=== PATIENT | female | born 1965 | race Caucasian/White ===

== ENCOUNTER → 2020-04-07 | Outpatient (CLI) | payer BC ==
[2020-04-07] MEDS: IOHEXOL 300 MG/ML 100ML VIAL. IV ONE (14:03)
[2020-04-07] MEDS: IOHEXOL 240 MG/ML 50ML VIAL. PO ONE (14:04)
--- NOTE | 2020-04-07 14:38 | RAD ---
EXAM: CT Abdomen and Pelvis with IV contrast INDICATION: Reason: LEFT UPPER QUADRANT PAIN / Spl. Instructions: INJ 75ML OMNI 300 30 ML OMNI 240 P O / History: TECHNIQUE: Multi-detector row CT images were acquired from the lung bases through the abdomen and pel vis with the use of IV contrast. Sagittal and coronal images were acquired from the transaxial data. All CT scans performed at this facility utilize dose optimization techniques as appropriate to the ex am, including the following: Automated exposure control and adjustment of the mA and/or KV according to patient size (this includes techniques or standardized protocols for targeted exams where dose is indication/reason for exam). IV CONTRAST: 75 mL Omnipaque 300 ORAL CONTRAST: 30 mL Omnipaque 240 COMPARISON: None FINDINGS: LOWER CHEST: Unremarkable LIVER: Unremarkable BILIARY SYSTEM: Gallbladder is unremarkable. Bile ducts are not dilated. PANCREAS: Unremarkable SPLEEN: Unremarkable ADRENALS: Unremarkable KIDNEYS & URETERS: Unremarkable BLADDER: Unremarkable REPRODUCTIVE ORGANS: Post surgical changes in the left adnexa, compatible with previous left salping o-oophorectomy. GASTROINTESTINAL: The stomach, small bowel, and colon are unremarkable. The appendix is normal. MESENTERY/PERITONEUM/RETROPERITONEUM: Unremarkable VASCULAR: Unremarkable LYMPH NODES: No adenopathy OSSEOUS & SOFT TISSUES: Lumbar spine shows grade 1 anterolisthesis of L4 on L5 and mild levoscoliosi s, apex at L4-5. Facet hypertrophic changes in the lower lumbar spine notably at L5-S1, left greater than right are present and result in at least moderate left foraminal stenosis at L5-S1. A 2.4 cm scl erotic focus in the left acetabulum and a similar, 8 mm sclerotic focus in the right acetabulum are c ompatible with benign bone islands. IMPRESSION: 1. Essentially unremarkable abdomen and pelvis CT with oral and IV contrast. 2. No specific findings to explain left upper quadrant abdominal pain. 3. Likely incidental degenerative changes in the lumbar spine and previous left salpingo-oophorectomy .. Electronically signed by: Rubin Howell MD (04/07/2020 2:35 PM) [id number]
== END ==
LOC: CT 12:52
PROVIDERS: ATTEND Internal Medicine Gastroenterology
DX: R10.12 Left upper quadrant pain (principal); M43.16 Spondylolisthesis, lumbar region; M41.86 Other forms of scoliosis, lumbar region; M47.817 Spondylosis without myelopathy or radiculopathy, lumbosacral region; M48.07 Spinal stenosis, lumbosacral region; Z90.722 Acquired absence of ovaries, bilateral
CPT/HCPCS: 74177; Q9966; Q9967

== ENCOUNTER 2021-01-09 17:58 | Emergency (ER) | payer BC ==
[~2021-01-09] VITALS: Ht 198.1 cm; Wt 68.0 kg
[2021-01-09] MEDS ORDERED: FLUORESCEIN OPHTH TEST STRIP. OS ONE (18:15)
[2021-01-09] MEDS ORDERED: TETRACAINE 0.5% OPHTH SOLUTION 4ML BOTTLE. OS ONE (18:15)
--- NOTE | 2021-01-09 18:28 | PHYS DOC ---
Past Medical History Additional Past Medical Histor: vertigo Past Surgical History: General Adult EDM: Chief Complaint: HEAD INJURY/TRAUMA HPI: HPI: Patient is a 55-year-old female presenting by EMS for head injury this evening. She reports that she was hit with a soccer ball and the impact was on the left side of her face. She reports feeling as though her vision was going black and having to lean on the people next to her, but denies passing out. She remembers the whole event. She denies use of blood thinner. She reports some tenderness on the left side of her neck and left cheek that is a 4 of 10. She also notes some eye irritation on the left. She feels as though her contact is lost somewhere in her eye, but denies any changes in her vision. Review of Systems: Review of Systems: Constitutional: Denies fever or chills Eyes: Reports eye irritation Respiratory: Denies cough or shortness of breath Cardiovascular: Denies chest pain or palpitations GI: Denies abdominal pain, nausea, or vomiting : Denies dysuria or hematuria Musculoskeletal: Denies back pain or joint pain Integument: Denies rash or skin lesions Neurologic: Denies headache, focal weakness or sensory changes Complete systems were reviewed and found to be within normal limits, except as documented in this note. Heart Score: C/O Chest Pain: No Current Medications: Current Medications Medications (Trade) Dose Ordered Sig/Duane Start Time Stop Time Status Last Admin Dose Admin Fluorescein Sodium (Ful-Conchita) 1 strip 1X ONCE 01/09/21 18:15 01/09/21 18:16 UNV Tetracaine HCl (Tetracaine) 2 drop 1X ONCE 01/09/21 18:15 01/09/21 18:16 Allergies: Allergies: Allergies Uncoded Allergies Type Severity Reaction Last Updated Verified PENICILLIN Allergy Unknown 04/07/20 Physical Exam: PE: Constitutional: Well developed, well nourished, no acute distress, non-toxic appearance HENT: Normocephalic, erythema over left maxilla, no facial crepitus or instability palpated Eyes: PERRL, EOMI, injected conjunctiva on the left, no visible contact in the eye on the left, but visible on the right Neck: No midline tenderness to palpation, paraspinal tenderness on the left, supple, C-collar in place Lungs & Thorax: No respiratory distress, equal chest rise and fall Abdomen: Soft, no tenderness Skin: Warm, dry, no erythema, no rash Back: No tenderness, no CVA tenderness Extremities: No tenderness, no edema, able to move all extremities Neurologic: Alert and oriented X 3, normal motor function, normal sensory function, no focal deficits noted Psychologic: Affect normal, judgment normal Current Patient Data: Vital Signs: Vital Signs Date Time Temp Pulse Resp B/P (MAP) Pulse Ox O2 Delivery O2 Flow Rate FiO2 01/09/21 18:00 98.4 72 16 199/106 (137) 98 Room Air 98.4 Course & Med Decision Making: Course & Med Decision Making Pertinent Labs and Imaging studies reviewed. (See chart for details) Patient is a 55-year-old female presenting by EMS for facial/head trauma. She was hit with a soccer ball and the impact was on the left side of her face. She has no cervical midline tenderness on exam. No obvious crepitus or facial instability palpated on exam. Denies use of blood thinners. Mechanism of injury not severe enough to warrant imaging at this time. No midline tenderness to cervical spine, C-collar was removed, ROM intact. Due to eye irritation, Davis lamp exam performed. No evidence of pillo sign or corneal abrasion visualized, subconjunctival contusion noted. Erythromycin ointment applied to eye for protection. We will advise to continue using the ointment for a few days due to the irritation from the eye contusion. Will also give prescription for norflex due to cervical paraspinal musculature tenderness on the left. Patient's blood pressure was elevated here in the emergency department, at 170-180 systolic, she has no history of hypertension. We discussed this with the patient, and recommended that she continue monitoring her blood pressure at home for the next few days. If the elevation continues, we recommend that she follow-up with her primary care physician. Patient stable for discharge with outpatient follow-up with PCP. Discussed findings and plan with patient, who acknowledges understanding and agreement. Patience Disclaimer: Patience Disclaimer: This electronic medical record was generated, in whole or in part, using a voice recognition dictation system. Additional Procedures Progress Slit Lamp Exam Verbal consent obtained. Time out performed. Hand hygiene utilized. Anesthesia obtained with tetracaine. Fluorescein applied. Negative for Pillo sign, no corneal abrasion visualized. Subconjunctival contusion noted at the 3-4 o'clock position. Upper eyelid everted, no contact remnants visualized. Patient tolerated procedure well and without difficulty. Empiric antibiotic ointment applied for protection Departure Departure Impression: Primary Impression: Facial contusion Qualified Codes: S00.83XA - Contusion of other part of head, initial encounter Additional Impressions: Contusion of left conjunctiva Qualified Codes: S05.12XA - Contusion of eyeball and orbital tissues, left eye, initial encounter Neck pain Disposition: HOME / SELF CARE / HOMELESS Condition: STABLE Referrals: JOSE WIGGINS MD (PCP) Patient Instructions: Cervical Strain and Sprain with Rehab-SportsMed, Eye Contusion, [id number], Facial or Scalp Contusion, [id number] Additional Instructions: Ice area of discomfort 20 minutes on then leave off next 20 minutes. Repeat several times daily for the next 2 days. Apply eye ointment to affected eye 3 times daily for the next several days. Use [id number] ibuprofen and or Tylenol for pain or discomfort. Scripts Erythromycin Base (Erythromycin) 1 Gm Oint...g. 0.5 INCH OP TID for 5 Days, #1 MISC Prov: KAUSHIK PEREZ DO 01/09/21 Orphenadrine Citrate (ORPHENADRINE CITRATE) 100 Mg Tablet.er 100 MG PO BID PRN for MUSCLE SPASMS, #14 TAB Prov: KAUSHIK PEREZ DO 01/09/21 KAUSHIK PEREZ DO Jan 09, 2021 18:28
[2021-01-09] MEDS ORDERED: ORPH100T PO (18:54)
[2021-01-09] MEDS ORDERED: ERYT1OIN6 OP (18:54)
[2021-01-09] MEDS ORDERED: ERYTHROMYCIN 0.5% OPHTH OINTMENT 1GM TUBE. ONE (19:02)
[2021-01-09] MEDS ORDERED: ERYTHROMYCIN 0.5% OPHTH OINTMENT 1GM TUBE. OS ONE (19:15)
[2021-01-09 19:22] VITALS: BP 163/100
== END 2021-01-09 19:25 | disposition home or self-care (01) ==
LOC: ER 17:58
DX: S05.12XA Contusion of eyeball and orbital tissues, left eye, initial encounter (principal); Z88.0 Allergy status to penicillin; W21.02XA Struck by soccer ball, initial encounter; Y93.66 Activity, soccer; Y92.89 Other specified places as the place of occurrence of the external cause; Y99.8 Other external cause status
CPT/HCPCS: 99285-25